=== PATIENT | female | born 1970 | race Caucasian/White ===

== ENCOUNTER 2024-09-17 10:42 | Emergency (ER) | payer BC, SELFPAY ==
[2024-09-17 11:04] VITALS: BP 156/87
--- NOTE | 2024-09-17 11:08 | ED.GENMED ---
ED Provider Triage
<Tigist Macedo PATIENT TRANSPORTATION DRIVER - Last Filed: 09/17/24 11:12>
-
Patient seen by provider in Triage?: Seen in Triage
Attestation: A medical screening examination has been initiated by a qualified medical provider. Based on the assessment performed at this time, it has been determined that an emergent medical condition may exist and the patient has been informed
that further medical evaluation and possible additional diagnostic testing may be needed.
HPI: 54-year-old female with IDDM, presents for shortness of breath, cough, fever, chills 4 days ago for about 48 hours. 2 nights ago most of the symptoms subsided but her cough persisted and initially she had pain across her upper abdomen from the
cough but for the past 2 days she noticed that the pain in her left upper abdomen now radiates down to the left lower abdomen. She also started with diarrhea 2 days ago, 3-4 times a day, nonbloody.
Had bronchitis 3 weeks ago and finished Z-Tim about a month ago.
Denies fever or chills the past 2 days.
GENERAL: Alert , in no apparent distress
EYE: No visual abnormalities.
NECK: Trachea midline
ENT: No visible abnormalities.
LUNGS: No acute respiratory distress
NEUROLOGICAL: Alert and oriented
SKIN: Skin intact. No visible changes.
MUSCULOSKELETAL: Moving extremities normally
PSYCH: Normal and appropriate interaction.
This is a medical evaluation conducted in person to initiate diagnostic evaluation and provide initial therapeutics. Please see further documentation by the treating clinician.
History of Present Illness
<Tigist Macedo PATIENT TRANSPORTATION DRIVER - Last Filed: 09/17/24 11:12>
General
Chief Complaint: Breathing Problem
Time Seen by Provider: 09/17/24 15:11
<Gama Schneider PA-C - Last Filed: 09/17/24 15:47>
General
Source: patient
History of Present Illness
History of Present Illness:
54-year-old female with past medical history of asthma and diabetes presenting to the emergency department for evaluation of flulike symptoms that began Monday morning accompanied with cough, shortness of breath, lightheadedness, loose stool,
generalized malaise. Patient works at the [employer] and multiple known sick contacts with the flu. Patient has been using her inhaler with some relief at home. Patient notes that when she attempts to take a deep breath she will often have a
coughing spell. No other concerns at this time.
Past History
<Gama Schneider PA-C - Last Filed: 09/17/24 15:47>
Past History
ED Past Medical History: Asthma and IDDM
ED Past Surgical History: None
Social History
Tobacco: Non-smoker
Alcohol: None
Drug: None
Personal: Single
Living: with family
Employment: Employed
Review of Systems
<Gama Schneider PA-C - Last Filed: 09/17/24 15:47>
Review of Systems
All Other Systems: ROS reviewed and negative except as documented in HPI and ROS
Phy Exam
<Gama Schneider PA-C - Last Filed: 09/17/24 15:47>
Physical Exam
Physical Exam:
GENERAL: Alert , in no apparent distress, intermittent nonproductive cough
EYE: conjunctiva clear
Head: Normocephalic atraumatic
NECK: Supple,
ENT: mmm.
LUNGS: no acute respiratory distress, speaking full sentences
NEUROLOGICAL: Alert and oriented
SKIN: Warm and dry, skin intact.
MUSCULOSKELETAL: well perfused.
PSYCH: Normal and appropriate interaction.
Scores
<RADHA Soto Last Filed: 09/17/24 15:47>
Heart Failure Risk
Heart Failure Risk Score: Not Applicable
Heart Score for Chest Pain Patients
STEMI patient?: Not applicable
Withdrawal Assessment of Alcohol
Withdrawal Assessment Completed?: Not applicable
Sepsis
<Gama Schneider PA-C - Last Filed: 09/17/24 15:47>
Sepsis Screening
Sepsis Assessment: Sepsis Ruled Out
Sepsis Screen
Sepsis Screen: Sepsis Ruled Out
Date: 09/17/24
Time: 15:47
Course
<Tigist Macedo NP - Last Filed: 09/17/24 11:12>
Orders/Labs/Results
Orders:
Orders
09/17/24 11:09
Electrocardiogram (*1) Urgent
Reason for Study: Shortness of Breath
EKG- Treatment ONCE
09/17/24 11:30
COVID-19 Antigen Urgent
Source: Nasal Swab
Complete Blood Count/With Diff Urgent
Comprehensive Metabolic Panel Urgent
Lipase Urgent
Influenza A+B Rapid Molecular Urgent
[facility] Source: Nasal Swab
Specimen Description:
09/17/24 11:54
Norovirus by PCR Urgent
[facility] Source: Feces/Stool
Specimen Description:
Date Specimen was Collected: 09/17/24
Time Specimen was Collected: 11:10
STOOL [C difficile Antigen & Toxins] Urgent
[place] Source: Feces/Stool
Specimen Description:
Date Specimen was Collected: 09/17/24
Time Specimen was Collected: 11:11
Stool Culture Urgent
[facility] Source: Feces/Stool
Specimen Description:
Date Specimen was Collected: 09/17/24
Time Specimen was Collected: 11:11
Abnormal Lab Results
09/17/24
11:30
MCH 26.5 L pg
(27.0-31.0)
MCHC 32.6 L g/dL
(33.0-37.0)
Creatinine 0.5 L mg/dL
(0.6-1.0)
Glucose 183 H mg/dl
(70-99)
Total Bilirubin 0.1 L mg/dl
(0.2-1.3)
09/17/24 11:30
09/17/24 11:30
Vital Signs
Initial and Last Documented VS:
Initial Vital Signs
Temp Pulse Resp BP Pulse Ox
99.2 F 117 25 156/87 97
09/17/24 11:04 09/17/24 11:04 09/17/24 11:04 09/17/24 11:04 09/17/24 11:04
Last Documented Vital Signs
Temp Pulse Resp BP Pulse Ox
99.2 F 102 20 122/85 95
09/17/24 11:04 09/17/24 13:15 09/17/24 13:15 09/17/24 13:15 09/17/24 13:15
<Gama Schneider PA-C - Last Filed: 09/17/24 15:47>
Orders/Labs/Results
Orders:
Orders
09/17/24 11:09
Electrocardiogram (*1) Urgent
Reason for Study: Shortness of Breath
EKG- Treatment ONCE
09/17/24 11:30
COVID-19 Antigen Urgent
Source: Nasal Swab
Complete Blood Count/With Diff Urgent
Comprehensive Metabolic Panel Urgent
Lipase Urgent
Influenza A+B Rapid Molecular Urgent
[facility] Source: Nasal Swab
Specimen Description:
09/17/24 11:54
Norovirus by PCR Urgent
[facility] Source: Feces/Stool
Specimen Description:
Date Specimen was Collected: 09/17/24
Time Specimen was Collected: 11:10
STOOL [C difficile Antigen & Toxins] Urgent
[place] Source: Feces/Stool
Specimen Description:
Date Specimen was Collected: 09/17/24
Time Specimen was Collected: 11:11
Stool Culture Urgent
[place] Source: Feces/Stool
Specimen Description:
Date Specimen was Collected: 09/17/24
Time Specimen was Collected: 11:11
Abnormal Lab Results
09/17/24
11:30
MCH 26.5 L pg
(27.0-31.0)
MCHC 32.6 L g/dL
(33.0-37.0)
Creatinine 0.5 L mg/dL
(0.6-1.0)
Glucose 183 H mg/dl
(70-99)
Total Bilirubin 0.1 L mg/dl
(0.2-1.3)
09/17/24 11:30
09/17/24 11:30
Vital Signs
Initial and Last Documented VS:
Initial Vital Signs
Temp Pulse Resp BP Pulse Ox
99.2 F 117 25 156/87 97
09/17/24 11:04 09/17/24 11:04 09/17/24 11:04 09/17/24 11:04 09/17/24 11:04
Last Documented Vital Signs
Temp Pulse Resp BP Pulse Ox
99.2 F 102 20 122/85 95
09/17/24 11:04 09/17/24 13:15 09/17/24 13:15 09/17/24 13:15 09/17/24 13:15
<Gama Schneider PA-C - Last Filed: 09/17/24 15:47>
MDM/Problems Addressed
Differential Diagnosis Includes:
COVID, flu, pneumonia
MDM/Problems Addressed:
54-year-old female presenting the ER for evaluation of flulike symptoms since Monday. Multiple known sick contacts with similar. Patient hemodynamically stable, no acute respiratory distress. Does note a history of asthma. Patient seen in
triage and tested positive for influenza A virus. Will send prescription for Tamiflu as well as prednisone due to her history of asthma. Patient has both inhaler and nebulizer machine at home which I encouraged use of if she is still feeling short
of breath. We discussed risk versus benefit of x-ray of the chest and given this would be unlikely to change her disposition patient decided against obtaining chest x-ray. Aware of return precautions to the ER but otherwise stable for discharge
home.
Chronic conditions affecting care: Asthma
<Gama Schneider PA-C - Last Filed: 09/17/24 15:47>
*Pulse Oximetry
Patient hypoxic: no
*EKG
Interpreted by ED Provider?: Yes
Comparison EKG: no changes
Heart Rate: 111
Rate: tachycardiac
Rhythm: sinus
Ischemia: no ischemia
*Critical Care Note
Total Time (30-74mins, 75-104mins- exclusive of procedures): Not Applicable
ED Attending Note
<Tigist Macedo NP - Last Filed: 09/17/24 11:12>
-
Portions of this chart may have been created with voice recognition software.� Occasional wrong word or��sound alike� substitutions may have occurred due to the inherent limitations of voice recognition software.
Discharge Plan
Departure
Patient Disposition: Home (Routine Discharge)
Date of Disposition: 09/17/24
Time of Disposition: 15:15
Patient with high blood pressure during this ER visit?: No
Discharge Problem:
Influenza A
Instructions: Flu in adults - Discharge instructions
Prescriptions:
New
oseltamivir [Tamiflu] 75 mg capsule
75 mg PO BID 5 Days Qty: 10 0RF
prednisone 50 mg tablet
50 mg PO DAILY Qty: 5 0RF
Stand Alone Forms: Return to Work
Interventions
Interventions:
*Risk Screen - Suicide Last Done: 09/17/24 11:04
Discharge Date and Time
Print Language: SWEDISH
[2024-09-17 11:50] LABS: % Basophils 0.4 % (0-2); % Eosinophils 4.2 % (0-6); % Immature Granulocytes 0.2 % (0-0.5); % Lymphocytes 21.9 % (20.5-51.1); % Monocytes 7.3 % (1.7-9.3); Absolute Eosinophils 0.2 10^3/uL (0-0.7); Absolute Lymphocytes 1.2 10^3/uL (1.2-3.4); Absolute Monocytes 0.4 10^3/uL (0.1-0.6); Absolute Neutrophils 3.5 10^3/uL (1.4-6.5); Hematocrit 40.2 % (37.0-47.0); Hemoglobin 13.1 g/dL (12.0-16.0); Mean Corp Hgb Conc. 32.6 g/dL (33.0-37.0); Mean Corpuscular Hgb 26.5 pg (27.0-31.0); Mean Corpuscular Volume 81.2 fL (81.0-99.0); Mean Platelet Volume 8.6 fL (7.4-10.4); Nucleated Red Blood Cells % 0 %; Platelet Count 212 10^3/uL (130-400); Red Blood Cell Count 4.95 10^6/uL (4.20-5.40); Red Cell Dist. Width 13.7 % (11.5-14.5); White Blood Cell Count 5.2 10^3/uL (4.8-10.8)
[2024-09-17 12:02] LABS: COVID-19 Antigen Negative (Negative)
[2024-09-17 12:12] LABS: ALT (SGPT) 32 U/L (0-35); AST (SGOT) 29 U/L (14-36); Albumin 4.1 g/dl (3.5-5.0); Alkaline Phosphatase 92 U/L (38-126); Blood Urea Nitrogen 12 mg/dl (7-17); Calcium 9.1 mg/dl (8.4-10.2); Carbon Dioxide 29 mmol/L (22-30); Chloride 99 mmol/L (98-107); Glucose 183 mg/dl (70-99); Lipase 137 U/L (23-300); Sodium 137 mmol/L (135-145); Total Bilirubin 0.1 mg/dl (0.2-1.3); Total Protein 6.7 g/dl (6.3-8.2); eGFR > 60.00
[2024-09-17 13:15] VITALS: BP 122/85
== END 2024-09-17 15:57 | disposition home or self-care (01) ==
LOC: EMR 10:42
PROVIDERS: Emergency Medicine; EMERGENCY PHYSICIAN Emergency Medicine; FAMILY PHYSICIAN Family Medicine
DX: J10.1 Influenza due to other identified influenza virus with other respiratory manifestations (principal); R42 Dizziness and giddiness; R00.0 Tachycardia, unspecified; R19.7 Diarrhea, unspecified; Z11.52 Encounter for screening for COVID-19; Z20.9 Contact with and (suspected) exposure to unspecified communicable disease; J45.909 Unspecified asthma, uncomplicated; E11.9 Type 2 diabetes mellitus without complications; Z79.4 Long term (current) use of insulin
CPT/HCPCS: 99283; 80053; 83690; 85025; 87045; 87046; 87324; 87427; 87449; 87502; 87798; 87811; 93005